=== PATIENT | male | born 2000 | race Caucasian/White ===

== ENCOUNTER 2020-06-01 11:15 | Emergency (ER) | payer SELFPAY ==
[2020-06-01 18:02] LABS: SARS-CoV-2 PCR by NAA Not Detected (NotDetected)
== END 2020-06-01 12:01 | disposition home or self-care (01) ==
LOC: ERS 11:15
DX: J02.9 Acute pharyngitis, unspecified (principal); Z20.822 Contact with and (suspected) exposure to COVID-19
CPT/HCPCS: 87081; 87430; 87635; 99283; U0003; U0005